=== PATIENT | male | born 1975 | race Caucasian/White ===

== ENCOUNTER 2018-06-18 10:23 | Emergency (ER) | payer OTHER ==
[2018-06-18 10:28] VITALS: BP 130/85; PULSE 70; RESP 18; TEMP 97.7
[2018-06-18] MEDS ORDERED: PROPARACAINE 0.5% OPHTH DROPS 15 ML BTL BOTH EYES STA (10:30)
[2018-06-18] MEDS ORDERED: ERYTHROMYCIN 5 MG/GM OPHTH OINT 3.5 GM TUBE BOTH EYES STA (10:30)
--- NOTE | 2018-06-18 11:28 | ED ---
General Adult HPI - General Chief complaint: Eye Problems Stated complaint: Eye pain Time Seen by Provider: 06/18/18 10:30 Source: patient, RN notes reviewed Mode of arrival: ambulatory Limitations: no limitations - History of Present Illness Initial comments: 43-year-old male presents to the emergency department for chief complaint of right eye irritation 3 days. Patient states he got a cold sore a few days ago and since then has had blisters forming around the right eye. States that these are very itchy in nature. Denies any visual changes. Denies any pain within the eye. Does state that the eye does appear red and is draining somewhat. He admits to rubbing his eye frequently but states he is trying not to do this. Patient denies any pain with movement of the eye. Patient did go to urgent care and they referred him here to the emergency department.Patient has no other complaints at this time including shortness of breath, chest pain, abdominal pain, nausea or vomiting, headache, or visual changes. - Related Data Previous Rx's Medication Instructions Recorded Erythromycin Ophth Oint [Romycin 1 applic RIGHT EYE QID 7 Days gm 06/18/18 Ophth Oint] predniSONE 50 mg PO DAILY #5 tablet 06/18/18 valACYclovir HCL [Valacyclovir] 1,000 mg PO Q8H 7 Days tab 06/18/18 Allergies Allergy/AdvReac Type Severity Reaction Status Date / Time latex Allergy Unknown Verified 06/18/18 10:47 Review of Systems ROS Statement: Those systems with pertinent positive or pertinent negative responses have been documented in the HPI. ROS Other: All systems not noted in ROS Statement are negative. Past Medical History Past Medical History: No Reported History History of Any Multi-Drug Resistant Organisms: None Reported Past Surgical History: Adenoidectomy, Orthopedic Surgery, Tonsillectomy Past Psychological History: No Psychological Hx Reported Smoking Status: Never smoker Past Alcohol Use History: None Reported Past Drug Use History: None Reported General Exam Limitations: no limitations General appearance: alert, in no apparent distress Head exam: Present: atraumatic, normocephalic, normal inspection Eye exam: Present: PERRL, EOMI, conjunctival injection (Minimal conjunctival injection noted along the lateral aspect of the right eye no drainage noted at this time), periorbital swelling (Minimal edema present around the right eye. There are about 3 vesicles noted along the right periorbital area. These are 2- 3 mm in size.). Absent: scleral icterus, periorbital tenderness, other (Negative Cruz sign. The eye was stained with fluorescein stain, no uptake present, no evidence of lesions, negative Christopher sign) ENT exam: Present: normal exam, normal oropharynx, mucous membranes moist, TM's normal bilaterally (No lesions noted within the ears), normal external ear exam Neck exam: Present: normal inspection, full ROM. Absent: tenderness, meningismus, lymphadenopathy Respiratory exam: Present: normal lung sounds bilaterally. Absent: respiratory distress, wheezes, rales, rhonchi, stridor Cardiovascular Exam: Present: regular rate, normal rhythm, normal heart sounds. Absent: systolic murmur, diastolic murmur, rubs, gallop, clicks Neurological exam: Present: alert, oriented X3, CN II-XII intact Psychiatric exam: Present: normal affect, normal mood Course Vital Signs 06/18/18 10:25 Temperature 97.7 F Pulse Rate 70 Respiratory 18 Rate Blood Pressure 130/85 O2 Sat by Pulse 98 Oximetry Medical Decision Making - Medical Decision Making 43-year-old male presents to the emergency department for a chief complaint of right eye irritation 3 days. Patient states that he has had three vesicles form around the right eye. Patient states he is also having some draining out of the right eye. Denies any pain with movement of the right eye. Denies any visual changes. On exam patient has minimal conjunctival erythema. Extraocular movements intact. PERRLA. The eye was stained with fluorescein stain, no evidence of uptake, no evidence of lesions. Negative Christopher sign. Patient was given erythromycin ointment due to discharge her eye. I suspect patient has shingles. Patient treated with fell psych L[facility]re as well as prednisone. I do not see any ophthalmic involvement at this time. However I did discuss risks associated with this and gave patient follow-up to ophthalmology. Disposition Clinical Impression: Shingles Disposition: HOME SELF-CARE Condition: Good Instructions (If sedation given, give patient instructions): Shingles (ED) Additional Instructions: Please take prescriptions as directed. Apply antibiotic ointment to the right eye 4 times per day for 7 days. If symptoms are worsening or you having increased pain return here to the emergency department. Otherwise follow-up with mine laborer Dr. Koch on Wednesday. Prescriptions: predniSONE 50 mg PO DAILY #5 tablet Erythromycin Ophth Oint [Romycin Ophth Oint] 1 applic RIGHT EYE QID 7 Days gm valACYclovir HCL [Valacyclovir] 1,000 mg PO Q8H 7 Days tab Is patient prescribed a controlled substance at d/c from ED?: No Referrals: Dominick Koch MD [STAFF PHYSICIAN] - 1-2 days Leah Foster MD [STAFF PHYSICIAN] - 1-2 days Time of Disposition: 11:24
== END 2018-06-18 11:42 | disposition home or self-care (01) ==
LOC: EC 10:23
DX: B02.9 Zoster without complications (principal); Z91.040 Latex allergy status
CPT/HCPCS: 99283